=== PATIENT | female | born 1995 | race Caucasian/White ===

== ENCOUNTER 2016-10-29 08:25 | Emergency (ER) | payer OTHER ==
[2016-10-29] MEDS ORDERED: cefTRIAXone 1,000 MG in Lidocaine 1% 4 ML IM ONE (08:36)
--- NOTE | 2016-10-29 08:36 | EDM.PDOC ---
ED HPI GENERAL MEDICAL PROBLEM - General Chief Complaint: Skin Complaint Stated Complaint: CUT ON ARM Time Seen by Provider: 10/29/16 08:29 - History of Present Illness INITIAL COMMENTS - FREE TEXT/NARRATIVE: HISTORY AND PHYSICAL: History of present illness: Patient 21-year-old white female presents with a concern of a superficial cut by a cardboard box several days prior who now has redness swelling with red streak proximally from the wound extending up her forearm. No fever chills nausea vomiting or other complaints Review of systems: As per history of present illness and below otherwise all systems reviewed and negative. Past medical history: As per history of present illness and as reviewed below otherwise noncontributory. Surgical history: As per history of present illness and as reviewed below otherwise noncontributory. Social history: No reported history of drug or alcohol abuse. Family history: As per history of present illness and as reviewed below otherwise noncontributory. Physical exam: HEENT: Atraumatic, normocephalic, pupils reactive, negative for conjunctival pallor or scleral icterus, mucous membranes moist, throat clear, neck supple, nontender, trachea midline. Lungs: Clear to auscultation, breath sounds equal bilaterally, chest nontender. Heart: S1S2, regular, negative for clicks, rubs, or JVD. Abdomen: Soft, nondistended, nontender. Negative for masses or hepatosplenomegaly. Negative for costovertebral tenderness. Pelvis: Stable nontender. Genitourinary: Deferred. Rectal: Deferred. Extremities: Patient is a small excoriated area relatively superficial on the volar aspect of her left wrist with a ascending lymphangitis noted that extends to her proximal forearm CMS neurovascular is unremarkable no fluctuance no duration Neuro: Awake, alert, oriented. Cranial nerves II through XII unremarkable. Cerebellum unremarkable. Motor and sensory unremarkable throughout. Exam nonfocal. Diagnostics: CBC CMP Therapeutics: Rocephin 1 g IM Impression: #1 cellulitis with ascending lymphangitis left upper extremity Definitive disposition and diagnosis as appropriate pending reevaluation and review of above. - Related Data Allergies Allergy/AdvReac Type Severity Reaction Status Date / Time cranberry Allergy Airway Verified 10/29/16 08:35 Tightness Sulfa (Sulfonamide Allergy Hives Verified 10/29/16 08:35 Antibiotics) Home Meds: Home Meds Control Pill 1 tab PO DAILY 11/25/14 [History] Social & Family History - Tobacco Use Smoking Status *Q: Never Smoker - Recreational Drug Use Recreational Drug Use: No ED ROS GENERAL - Review of Systems Review Of Systems: ROS reveals no pertinent complaints other than HPI. ED EXAM, SKIN/RASH Exam: See Below (See dictation) Course - Orders/Labs/Meds Orders: Active Orders 24 hr Category Date Time Status CBC WITH AUTO DIFF [HEME] Stat Lab 10/29/16 08:36 Ordered CMP [COMPREHENSIVE METABOLIC PN,CMP] [CHEM] Stat Lab 10/29/16 08:36 Ordered cefTRIAXone [Rocephin] 1,000 mg Med 10/29/16 08:36 Ordered Lidocaine 1% [Xylocaine-MPF 1%] 4 ml IM ONETIME Departure - Departure Time of Disposition: 08:37 Disposition: Home, Self-Care 01 Condition: Good Clinical Impression: Cellulitis, Ascending lymphangitis - Discharge Information Forms: ED Department Discharge Additional Instructions: The following information is given to patients seen in the emergency department who are being discharged to home. This information is to outline your options for follow-up care. We provide all patients seen in our emergency department with a follow-up referral. The need for follow-up, as well as the timing and circumstances, are variable depending upon the specifics of your emergency department visit. If you don't have a primary care physician on staff, we will provide you with a referral. We always advise you to contact your personal physician following an emergency department visit to inform them of the circumstance of the visit and for follow-up with them and/or the need for any referrals to a consulting specialist. The emergency department will also refer you to a specialist when appropriate. This referral assures that you have the opportunity for followup care with a specialist. All of these measure are taken in an effort to provide you with optimal care, which includes your followup. Under all circumstances we always encourage you to contact your private physician who remains a resource for coordinating your care. When calling for followup care, please make the office aware that this follow-up is from your recent emergency room visit. If for any reason you are refused follow-up, please contact the [facility] emergency department at and asked to speak to the emergency department charge nurse. Keflex as prescribed follow-up for recheck 24-48 hours return as needed as discussed - My Orders Last 24 Hours: My Active Orders 10/29/16 08:36 CBC WITH AUTO DIFF [HEME] Stat CMP [COMPREHENSIVE METABOLIC PN,CMP] [CHEM] Stat cefTRIAXone [Rocephin] 1,000 mg Lidocaine 1% [Xylocaine-MPF 1%] 4 ml IM ONETIME - Assessment/Plan Last 24 Hours: My Active Orders 10/29/16 08:36 CBC WITH AUTO DIFF [HEME] Stat CMP [COMPREHENSIVE METABOLIC PN,CMP] [CHEM] Stat cefTRIAXone [Rocephin] 1,000 mg Lidocaine 1% [Xylocaine-MPF 1%] 4 ml IM ONETIME
[2016-10-29 08:40] VITALS: BP 120/71
[2016-10-29] MEDS ORDERED: Bacitracin Oint 1 GM U/D Packet TOP ONE (09:15)
[2016-10-29] MEDS ORDERED: Diphtheria,Pertussis(Acell),Tetanus Vaccine 0.5 ML Syringe IM ONE (09:15)
[2016-10-29 09:22] LABS: CHLORIDE,CL 109 mmol/L (98-110); SODIUM,NA 139 mmol/L (136-146)
== END 2016-10-29 09:40 | disposition home or self-care (01) ==
LOC: MW.ED 08:25
DX: L03.114 Cellulitis of left upper limb (principal); I89.1 Lymphangitis; Z88.2 Allergy status to sulfonamides; Z91.018 Allergy to other foods; Z79.899 Other long term (current) drug therapy
CPT/HCPCS: 36415; 80053; 85025; 90471; 90715; 96372; 99283; J0696

== ENCOUNTER 2017-12-09 01:37 | Emergency (ER) | payer BC, OTHER ==
[2017-12-09 01:46] VITALS: BP 114/70
[2017-12-09] MEDS ORDERED: Acetaminophen/HYDROcodone 325-5 MG Tab PO ONE (01:47)
--- NOTE | 2017-12-09 01:49 | EDM.PDOC ---
ED HPI GENERAL MEDICAL PROBLEM - General Chief Complaint: Back Pain or Injury Stated Complaint: TAIL BONE PAIN Time Seen by Provider: 12/09/17 01:46 - History of Present Illness INITIAL COMMENTS - FREE TEXT/NARRATIVE: HISTORY AND PHYSICAL: History of present illness: Patient's 19 throat females 1 day status post fall onto her buttock was she was working with her horse she's had discomfort in her "tailbone" since been no numbness no weakness no incontinence retention bowel or bladder no other trauma or concern Review of systems: As per history of present illness and below otherwise all systems reviewed and negative. Past medical history: As per history of present illness and as reviewed below otherwise noncontributory. Surgical history: As per history of present illness and as reviewed below otherwise noncontributory. Social history: No reported history of drug or alcohol abuse. Family history: As per history of present illness and as reviewed below otherwise noncontributory. Physical exam: HEENT: Atraumatic, normocephalic, pupils reactive, negative for conjunctival pallor or scleral icterus, mucous membranes moist, throat clear, neck supple, nontender, trachea midline. Lungs: Clear to auscultation, breath sounds equal bilaterally, chest nontender. Heart: S1S2, regular, negative for clicks, rubs, or JVD. Abdomen: Soft, nondistended, nontender. Negative for masses or hepatosplenomegaly. Negative for costovertebral tenderness. Pelvis: Stable nontender. Genitourinary: Deferred. Rectal: Deferred. Extremities: Atraumatic, negative for cords or calf pain. Neurovascular unremarkable. Neuro: Awake, alert, oriented. Cranial nerves II through XII unremarkable. Cerebellum unremarkable. Motor and sensory unremarkable throughout. Exam nonfocal. Back: Patient some mild tenderness in the region of her sacrum and coccyx is no crepitation this is somewhat localized patient able stand on her toes back on her heels motor and sensory are normal Diagnostics: X-ray sacrum/coccyx Therapeutics: Hydrocodone 5 mg by mouth Impression: #1 sacral/coccyx contusion Definitive disposition and diagnosis as appropriate pending reevaluation and review of above. lower back Pain Score (Numeric/FACES): 5 - Related Data Allergies Allergy/AdvReac Type Severity Reaction Status Date / Time cranberry Allergy Airway Verified 12/09/17 01:42 Tightness Sulfa (Sulfonamide Allergy Hives Verified 12/09/17 01:42 Antibiotics) Home Meds: Home Meds Control Pill 1 tab PO DAILY 11/25/14 [History] Past Medical History - Past Health History Medical/Surgical History: Denies Medical/Surgical History Social & Family History - Family History Family Medical History: Noncontributory ED ROS GENERAL - Review of Systems Review Of Systems: ROS reveals no pertinent complaints other than HPI. ED EXAM, GENERAL - Physical Exam Exam: See Below (See dictation) Course - Vital Signs Last Recorded V/S: Last Vital Signs Temp 36.4 C 12/09/17 01:43 Pulse 81 12/09/17 01:43 Resp 18 12/09/17 01:43 BP 114/70 12/09/17 01:43 Pulse Ox 98 12/09/17 01:43 - Orders/Labs/Meds Orders: Active Orders 24 hr Category Date Time Status Sacrum Coccyx Min 2V [CR] Stat Exams 12/09/17 01:46 Ordered Departure - Departure Time of Disposition: 01:48 Disposition: Home, Self-Care 01 Condition: Good Clinical Impression: Contusion - Discharge Information *PRESCRIPTION DRUG MONITORING PROGRAM REVIEWED*: Not Applicable *COPY OF PRESCRIPTION DRUG MONITORING REPORT IN PATIENT GUNNAR: Not Applicable Referrals: Vickie Correia NP [Primary Care Provider] - Additional Instructions: The following information is given to patients seen in the emergency department who are being discharged to home. This information is to outline your options for follow-up care. We provide all patients seen in our emergency department with a follow-up referral. The need for follow-up, as well as the timing and circumstances, are variable depending upon the specifics of your emergency department visit. If you don't have a primary care physician on staff, we will provide you with a referral. We always advise you to contact your personal physician following an emergency department visit to inform them of the circumstance of the visit and for follow-up with them and/or the need for any referrals to a consulting specialist. The emergency department will also refer you to a specialist when appropriate. This referral assures that you have the opportunity for followup care with a specialist. All of these measure are taken in an effort to provide you with optimal care, which includes your followup. Under all circumstances we always encourage you to contact your private physician who remains a resource for coordinating your care. When calling for followup care, please make the office aware that this follow-up is from your recent emergency room visit. If for any reason you are refused follow-up, please contact the [facility] emergency department at and asked to speak to the emergency department charge nurse. Follow-up primary medical doctor as needed as discussed hydrocodone as prescribed return as needed as discussed eliel as directed - My Orders Last 24 Hours: My Active Orders 12/09/17 01:46 Sacrum Coccyx Min 2V [CR] Stat - Assessment/Plan Last 24 Hours: My Active Orders 12/09/17 01:46 Sacrum Coccyx Min 2V [CR] Stat
--- NOTE | 2017-12-11 10:39 | CR ---
EXAM DATE: 12/09/17 PATIENT'S AGE: 22 Patient: NAKUL ARANA Facility: [place], [place] Site . Site : 1995 Study: XRay Spine [id number]/[id number] 2:22:57 AM Ordering Physician: Latrell Merchant Final Report: Indication: Coccyx pain after falling from horse Technique: Three-view sacrum and coccyx Comparison: None Findings/Impression: : No fracture or subluxation. No evidence for presacral hematoma. Dictated by Lexus Moore MD @ Dec 09 2017 2:24AM (Electronic Signature) Report Signed by Proxy. IVETH
== END 2017-12-09 02:31 | disposition home or self-care (01) ==
LOC: MW.ED 01:37
DX: S34.139A Unspecified injury to sacral spinal cord, initial encounter (principal); X58.XXXA Exposure to other specified factors, initial encounter; Z91.018 Allergy to other foods; Z88.2 Allergy status to sulfonamides
CPT/HCPCS: 72220; 99283; A9270

== ENCOUNTER 2023-07-22 11:58 | Emergency (ER) | payer BC ==
[2023-07-22] MEDS: Sodium Chloride 0.9% 10 ML Syringe FLUSH PRN (12:35)
[2023-07-22] MEDS: Dextrose 5%-0.9% NaCl 1,000 ML IV SCH (12:35)
[2023-07-22] MEDS: Ondansetron 4 MG/2 ML SDV IVPUSH STA (12:35)
[2023-07-22] MEDS: Sodium Chloride 0.9% 2.5 ML Syringe FLUSH PRN (12:35)
[2023-07-22 12:55] LABS: BASOPHILS ABSOLUTE AUTO 0.08 K/uL (0.00-0.20); BASOPHILS PERCENT AUTO 0.8 % (0.0-1.0); EOSINOPHILS ABSOLUTE AUTO 0.03 K/uL (0.00-0.45); EOSINOPHILS PERCENT AUTO 0.3 % (0.0-6.0); HEMATOCRIT 37.5 % (37.0-47.0); HEMOGLOBIN 13.2 g/dL (12.0-16.0); IMMATURE GRAN ABSOLUTE AUTO 0.02 K/uL (0.00-0.05); IMMATURE GRAN PERCENT AUTO 0.2 % (0.0-0.4); LYMPHOCYTES ABSOLUTE AUTO 2.22 K/uL (1.00-4.80); LYMPHOCYTES PERCENT AUTO 21.7 % (24.0-44.0); MEAN CORPUSCULAR HEMOGLOBIN 30.3 pg (28.0-32.0); MEAN CORPUSCULAR HGB CONC 35.2 g/dL (32.0-36.0); MEAN PLATELET VOLUME 9.1 fL (9.4-12.3); MONOCYTES ABSOLUTE AUTO 0.62 K/uL (0.00-0.80); MONOCYTES PERCENT AUTO 6.1 % (0.0-8.0); NEUTROPHILS ABSOLUTE AUTO 7.26 K/uL (1.80-7.70); NEUTROPHILS PERCENT AUTO 70.9 % (41.0-71.0); PLATELET COUNT,PLT 275 K/uL (150-400); RED BLOOD CELL COUNT 4.36 M/uL (4.10-5.30); WHITE BLOOD CELL COUNT,WBC 10.23 K/uL (3.9-11.3)
[2023-07-22 13:18] LABS: A/G RATIO 1.2 (0.9-1.6); ALBUMIN 3.7 g/dL (3.4-5.0); BILIRUBIN TOTAL 0.7 mg/dL (0.2-1.0); CALCIUM 8.8 mg/dL (8.5-10.1); CARBON DIOXIDE,CO2 20.3 mmol/L (21.0-32.0); CREATININE 0.8 mg/dL (0.6-1.0); EST CRCL DRUG DOSING (CG) 113.21 mL/min; MAGNESIUM 1.7 mg/dL (1.8-2.4); POTASSIUM,K 3.7 mmol/L (3.5-5.1); PROTEIN TOTAL,TP 6.9 g/dL (6.4-8.2)
[2023-07-22 14:07] LABS: APPEARANCE,URINE CLEAR; BILIRUBIN,URINE NEGATIVE (NEGATIVE); COLOR,URINE YELLOW; GLUCOSE,URINE 500 mg/dL (NEGATIVE); KETONES,URINE >=80 mg/dL (NEGATIVE); LEUKOCYTE ESTERASE,URINE NEGATIVE (NEGATIVE); NITRITE,URINE NEGATIVE (NEGATIVE); OCCULT BLOOD,URINE TRACE-INTACT (NEGATIVE); PROTEIN,URINE NEGATIVE (NEGATIVE); UROBILINOGEN,URINE 0.2 EU/dL (<2.0)
[2023-07-22 14:24] LABS: BACTERIA,URINE FEW (NEGATIVE); EPITHELIAL CELLS,URINE FEW (NONE-FEW); RBC,URINE NONE SEEN (0-2/HPF); WBC,URINE 0-1 (0-5/HPF)
[2023-07-22 14:25] LABS: MUCUS,URINE LIGHT (NONE-MOD)
[2023-07-22] MEDS: Magnesium Oxide 400 MG Tab PO STA (14:31)
[2023-07-22] MEDS: Dextrose 5%-0.9% NaCl 1,000 ML IV STA (14:31)
[2023-07-22 15:24] VITALS: BP 105/53; PULSE 64
[2023-07-22] MEDS: Magnesium Sulfate/Water 2 GM in Premix Bag 1 BAG IV STA (18:04)
== END 2023-07-22 15:26 | disposition home or self-care (01) ==
LOC: MW.ED 11:58
DX: O21.0 Mild hyperemesis gravidarum (principal); Z91.018 Allergy to other foods; Z88.0 Allergy status to penicillin; Z3A.01 Less than 8 weeks gestation of pregnancy
CPT/HCPCS: 36415; 80053; 81001; 81025; 83690; 83735; 85025; 96361; 96374; 99284; A9270; J2405; J3490; J7042

== ENCOUNTER 2024-03-08 05:50 | Inpatient (IN) | payer BC ==
[2024-03-08] MEDS ORDERED: Methylergonovine 0.2 MG/1 ML Amp IM PRN (06:56)
[2024-03-08] MEDS ORDERED: Nalbuphine 10 MG/1 ML Vial IVPUSH PRN (06:56)
[2024-03-08] MEDS ORDERED: Carboprost Tromethamine 250 MCG/1 mL Vial IM PRN (06:56)
[2024-03-08] MEDS ORDERED: Misoprostol 200 MCG Tab PO PRN (06:56)
[2024-03-08] MEDS ORDERED: Tranexamic Acid in NACL,ISO-OS 1,000 MG/100 ML Bag IV PRN (06:56)
[2024-03-08] MEDS ORDERED: Butorphanol 2 MG/ML SDV IVPUSH PRN (06:56)
[2024-03-08] MEDS ORDERED: Sodium Chloride 0.9% 2.5 ML Syringe FLUSH PRN (06:56)
[2024-03-08] MEDS ORDERED: Sodium Chloride 0.9% 20 ML SDV IV PRN (06:56)
[2024-03-08] MEDS ORDERED: Ondansetron 4 MG/2 ML SDV IVPUSH PRN (06:56)
[2024-03-08] MEDS ORDERED: Sodium Chloride 0.9% 10 ML Syringe FLUSH PRN (06:56)
[2024-03-08] MEDS ORDERED: Lactated Ringers 1,000 ML IV SCH (07:00)
[2024-03-08] MEDS ORDERED: Tranexamic Acid in NACL,ISO-OS 1,000 MG in Premix Bag 1 BAG IV PRN (07:17)
[2024-03-08] MEDS ORDERED: ePHEDrine 50 MG/ML SDV IVPUSH PRN (07:36)
[2024-03-08] MEDS ORDERED: Phenylephrine HCl In 0.9% NaCl 1 MG/10 ML Syringe IVPUSH PRN (07:36)
[2024-03-08] MEDS ORDERED: dexmedeTOMIDine HCl 200 MCG/2 ML SDV EPIDUR SCH (07:45)
[2024-03-08] MEDS ORDERED: Ropivacaine HCl/PF 400 MG in Premix Bag 1 BAG EPIDUR SCH (07:45)
[2024-03-08 07:49] LABS: BASOPHILS PERCENT AUTO 0.8 % (0.0-1.0); EOSINOPHILS ABSOLUTE AUTO 0.19 K/uL (0.00-0.45); EOSINOPHILS PERCENT AUTO 1.9 % (0.0-6.0); HEMATOCRIT 31.3 % (37.0-47.0); HEMOGLOBIN 10.5 g/dL (12.0-16.0); IMMATURE GRAN PERCENT AUTO 0.8 % (0.0-0.4); LYMPHOCYTES ABSOLUTE AUTO 1.94 K/uL (1.00-4.80); LYMPHOCYTES PERCENT AUTO 19.1 % (24.0-44.0); MEAN CORPUSCULAR HEMOGLOBIN 28.6 pg (28.0-32.0); MEAN CORPUSCULAR HGB CONC 33.5 g/dL (32.0-36.0); MEAN CORPUSCULAR VOLUME 85.3 fL (83.0-99.0); MEAN PLATELET VOLUME 10.2 fL (9.4-12.3); MONOCYTES ABSOLUTE AUTO 1.22 K/uL (0.00-0.80); NEUTROPHILS ABSOLUTE AUTO 6.66 K/uL (1.80-7.70); NEUTROPHILS PERCENT AUTO 65.4 % (41.0-71.0); PLATELET COUNT,PLT 255 K/uL (150-400); RED BLOOD CELL COUNT 3.67 M/uL (4.10-5.30); WHITE BLOOD CELL COUNT,WBC 10.17 K/uL (3.9-11.3)
[2024-03-08 07:50] LABS: BASOPHILS ABSOLUTE AUTO 0.08 K/uL (0.00-0.20); IMMATURE GRAN ABSOLUTE AUTO 0.08 K/uL (0.00-0.05)
[2024-03-08 08:02] LABS: APPEARANCE,URINE CLEAR; BILIRUBIN,URINE NEGATIVE (NEGATIVE); COLOR,URINE YELLOW; GLUCOSE,URINE 250 mg/dL (NEGATIVE); KETONES,URINE NEGATIVE (NEGATIVE); LEUKOCYTE ESTERASE,URINE NEGATIVE (NEGATIVE); NITRITE,URINE NEGATIVE (NEGATIVE); OCCULT BLOOD,URINE TRACE-INTACT (NEGATIVE); PROTEIN,URINE NEGATIVE (NEGATIVE); UROBILINOGEN,URINE 0.2 EU/dL (<2.0)
[2024-03-08 08:34] LABS: BACTERIA,URINE FEW (NEGATIVE); MUCUS,URINE LIGHT (NONE-MOD); SQUAMOUS EPITHELIAL CELLS,UR FEW; WBC,URINE 0-2 (0-5/HPF)
[2024-03-08] MEDS ORDERED: Misoprostol 25 MCG (1/4 of 100 MCG) Tab VAG PRN (08:41)
[2024-03-08] MEDS ORDERED: Terbutaline 1 MG/ML SDV SUBCUT PRN (08:41)
[2024-03-08] MEDS ORDERED: Oxytocin/0.9 % Sodium Chloride 30 UNIT/500 ML BAG IV SCH (08:45)
[2024-03-08] MEDS: Misoprostol 25 MCG (1/4 of 100 MCG) Tab VAG PRN (08:57)
[2024-03-08 09:22] LABS: A/G RATIO 0.6 (0.9-1.6); ALBUMIN 2.3 g/dL (3.4-5.0); BILIRUBIN TOTAL 0.2 mg/dL (0.2-1.0); CALCIUM 8.7 mg/dL (8.5-10.1); CARBON DIOXIDE,CO2 23.2 mmol/L (21.0-32.0); CREATININE 0.7 mg/dL (0.6-1.0); EST CRCL DRUG DOSING (CG) 128.23 mL/min; POTASSIUM,K 4.1 mmol/L (3.5-5.1); PROTEIN TOTAL,TP 6.4 g/dL (6.4-8.2)
[2024-03-08 09:23] LABS: CREATININE,URINE RAND 53.3 mg/dL; PROTEIN CREATININE RATIO,URINE 0.3; PROTEIN,URINE RANDOM 17.4 mg/dL (<11.9)
[2024-03-08] MEDS: Oxytocin/0.9 % Sodium Chloride 30 UNIT/500 ML BAG IV SCH (19:18)
[2024-03-08] MEDS ORDERED: Simethicone 80 MG Tab.Chew PO PRN (19:47)
[2024-03-08 19:55] LABS: PH,UMBILICAL ARTERIAL 7.207 (7.18-7.38); PH,UMBILICAL VENOUS 7.267 (7.25-7.45)
[2024-03-08] MEDS: Lidocaine 1% 50 ML MDV INJECT PRN (20:03)
[2024-03-08] MEDS: Water For Irrigation,Sterile 1,000 ML Container IRR PRN (20:04)
[2024-03-08] MEDS: Witch Hazel Medicated Pads 40/Jar TOP PRN (22:00)
[2024-03-08] MEDS: Benzocaine/Menthol 20%-0.5% Spray 78 GM Cannister TOP PRN (22:00)
[2024-03-08] MEDS: Ibuprofen 800 MG Tab PO PRN (22:24)
[2024-03-08] MEDS: Acetaminophen 500 MG Tab PO PRN (22:25)
[2024-03-08] MEDS: Docusate Sodium 100 MG Cap PO PRN (22:25)
[2024-03-09 06:36] LABS: HEMATOCRIT 31.7 % (37.0-47.0); HEMOGLOBIN 10.4 g/dL (12.0-16.0); MEAN CORPUSCULAR HGB CONC 32.8 g/dL (32.0-36.0); MEAN CORPUSCULAR VOLUME 85.2 fL (83.0-99.0); MEAN PLATELET VOLUME 10.4 fL (9.4-12.3); PLATELET COUNT,PLT 269 K/uL (150-400); RED BLOOD CELL COUNT 3.72 M/uL (4.10-5.30); WHITE BLOOD CELL COUNT,WBC 15.84 K/uL (3.9-11.3)
[2024-03-09 07:03] LABS: A/G RATIO 0.6 (0.9-1.6); ALBUMIN 2.1 g/dL (3.4-5.0); BILIRUBIN TOTAL 0.3 mg/dL (0.2-1.0); CALCIUM 8.5 mg/dL (8.5-10.1); CARBON DIOXIDE,CO2 27.4 mmol/L (21.0-32.0); CREATININE 0.8 mg/dL (0.6-1.0); EST CRCL DRUG DOSING (CG) 112.2 mL/min; POTASSIUM,K 4.2 mmol/L (3.5-5.1); PROTEIN TOTAL,TP 5.7 g/dL (6.4-8.2)
[2024-03-09] MEDS: Lanolin 100% Cream 7 GM Tube TOP PRN (16:57)
[2024-03-10 11:07] VITALS: BP 122/86; PULSE 78
== END 2024-03-10 13:45 | disposition home or self-care (01) | DRG 560 ==
LOC: MW.OBCHECK 05:50 → MW.OB 05:50 → MW.OBCHECK 19:21 → MW.OB 19:21 → OBSVTOIN 19:47 → MW.OB 22:54
PROVIDERS: ADMIT Obstetrics & Gynecology; ATTEND Obstetrics & Gynecology
PROC: 10E0XZZ Delivery of Products of Conception, External Approach (ICD-10-PCS; principal; 2024-03-08)
PROC: 3E033VJ Introduction of Other Hormone into Peripheral Vein, Percutaneous Approach (ICD-10-PCS; 2024-03-08)
PROC: 3E0P7VZ Introduction of Hormone into Female Reproductive, Via Natural or Artificial Opening (ICD-10-PCS; 2024-03-08)
PROC: 0KQM0ZZ Repair Perineum Muscle, Open Approach (ICD-10-PCS; 2024-03-08)
PROC: 3E0R3BZ Introduction of Anesthetic Agent into Spinal Canal, Percutaneous Approach (ICD-10-PCS; 2024-03-08)
PROC: 00HU33Z Insertion of Infusion Device into Spinal Canal, Percutaneous Approach (ICD-10-PCS; 2024-03-08)
DX: O13.4 Gestational [pregnancy-induced] hypertension without significant proteinuria, complicating childbirth (principal); Z37.0 Single live birth; O41.03X0 Oligohydramnios, third trimester, not applicable or unspecified; O70.1 Second degree perineal laceration during delivery; Z3A.40 40 weeks gestation of pregnancy; Z88.2 Allergy status to sulfonamides; Z90.89 Acquired absence of other organs; Z98.890 Other specified postprocedural states
CPT/HCPCS: 36415; 59025; 59409; 76805; 76805-26; 80053; 81001; 82570; 82803; 84112; 84156; 85025; 85027; 86592; 86850; 86900; 86901; A9270-GY; J2590; J3490

== ENCOUNTER 2024-08-21 10:29 | Emergency (ER) | payer OTHER, BC ==
[2024-08-21 11:22] VITALS: BP 117/88; PULSE 64
== END 2024-08-21 11:19 | disposition home or self-care (01) ==
LOC: MW.ED 10:29
DX: Z77.098 Contact with and (suspected) exposure to other hazardous, chiefly nonmedicinal, chemicals (principal); Z91.018 Allergy to other foods; Z88.2 Allergy status to sulfonamides
CPT/HCPCS: 99282; 99283